=== PATIENT | female | born 1935 | race Caucasian/White ===

== ENCOUNTER → 2016-07-09 | Outpatient (CLI) | payer OTHER | LOC: RAD 07-08 16:11 | DX: Z12.31 Encounter for screening mammogram for malignant neoplasm of breast (principal) ==

== ENCOUNTER → 2017-07-15 | Outpatient (CLI) | payer OTHER | LOC: RAD 01:33 | DX: Z12.31 Encounter for screening mammogram for malignant neoplasm of breast (principal) ==

== ENCOUNTER → 2018-07-28 | Outpatient (CLI) | payer OTHER | LOC: RAD 02:42 | DX: Z12.31 Encounter for screening mammogram for malignant neoplasm of breast (principal) ==

== ENCOUNTER → 2019-08-02 | Outpatient (CLI) | payer OTHER | LOC: RAD 11:08 | DX: Z12.31 Encounter for screening mammogram for malignant neoplasm of breast (principal) ==

== ENCOUNTER → 2021-04-19 | Outpatient (CLI) | payer OTHER | LOC: NUC 09:06 | DX: M81.0 Age-related osteoporosis without current pathological fracture (principal); E28.39 Other primary ovarian failure; Z78.0 Asymptomatic menopausal state ==